=== PATIENT | female | born 1990 | race Hispanic/Latino ===

== ENCOUNTER 2025-02-13 18:23 | Emergency (ER) | payer SELFPAY ==
[~2025-02-13] VITALS: Ht 157.5 cm; Wt 77.1 kg
--- NOTE | 2025-02-13 18:41 | ERN ---
ED Note History of Present Illness Stated Complaint: HEADACHE Chief Complaint: Headache Time Seen by MD: 18:25 Time Seen by Midlevel: 18:25 Dictation: The patient is a 34-year-old female with a history of migraines, anxiety, hypertension not currently on any medications who presents to the emergency department with multiple complaints. Patient reports that this morning around 11:00 a.m. she started having some chest pressure that radiated to her left arm, nausea. Patient also reports that she has been having a migraine headache. Reports generalized headache. Denies any fevers, denies any vomiting, denies any upper respiratory symptoms denies any head trauma. Patient reports his pain is similar to her migraine headache. Allergies: Coded Allergies: No Known Allergies (Unverified Allergy, Unknown, 02/13/25) Past Medical History Past Medical History: Anxiety, Hypertension, Migraines Surgical History: Other LMP: Feb 04, 2025 RN Note Reviewed/Agreed w/PFSH: Yes Review of System Dictation Constitutional: Negative for fever,chills, and weight loss Eyes: Negative for injury, pain,redness, and discharge ENT: Negative for injury,pain or swelling Cardiovascular: Negative for palpitations, and edema positive for chest pain Respiratory: Negative for shortness of breath, cough, and wheezing, Abdomen/GI: Negative for abdominal pain, vomiting, diarrhea, and constipation positive for nausea Back: Negative for injury and pain : Negative for injury, bleeding and discharge MS/Extremity: Negative for injury and deformity Skin: Negative for rash, and discoloration Neuro: Negative for weakness, numbness, tingling, and seizure positive for headache Psych: Negative for suicide ideation, homicidal ideation, and hallucinations Initial Vital Sign VS Vital Signs Date Time Temp Pulse Resp B/P (MAP) Pulse Ox O2 Delivery O2 Flow Rate FiO2 02/13/25 18:24 97.5 87 20 118/87 100 Room Air 02/13/25 19:22 0 21 Physical Exam Dictation Vital Signs reviewed General Appearance: Alert, oriented x 3, no acute distress, well developed, nourished. Head and Face: non-traumatic. Eyes: PERRL, pink conjunctivas, eyelid no trauma, anterior chamber with arcus senilis. Ears: Pinnas intact and no signs of trauma or erythema ear canals clear and no discharge TM no erythema Nose: No discharge, no bleeding. Oropharynx: Mouth normal, tongue pink. pharynx clear,no erythema, tonsils no exudates, no abscesses noted, mucous membrane moist Neck: Supple, non-tender, no thyromegaly, no masses, no JVD, no bruits Breast:Deferred Chest:No tenderness, no crepitus, no paradoxical movement, no retractions Lungs:Clear, well-ventilated, symmetric, no rales, no wheezing, no rhonchi, no stridor, good breath sounds bilaterally Heart: Regular rate, regular rhythm, no murmur, no gallops Vascular: no peripheral edema, Abdomen: Soft, positive bowel sounds, nondistended, no guarding, nontender, no rebound, no masses no hepatomegaly, no splenomegaly, no Cutler's sign, no hernias. Rectal: Deferred Genital: Deferred Neurological: Normal speech, motor function intact, sensory function intact , upper extremities equal in strength, lower extremities equal in strength has been. Musculoskeletal: Neck nontender, full range of motion, back nontender, full range of motion, Extremities: nontender, full range of motion Skin: Color pink, dry, no turgor, no rash, no lacerations, no abrasions, no contusions. Lymphatic: Deferred Results (Laboratory/Radiology) Laboratory/Radiology Laboratory Tests Test 02/13/25 19:00 White Blood Count 7.5 K/uL (4.8-10.8) Red Blood Count 4.83 MIL/uL (4.00-5.50) Hemoglobin 14.5 g/dL (12.0-16.0) Hematocrit 43.1 % (36-48) Mean Corpuscular Volume 89.2 fL (79-99) Mean Corpuscular Hemoglobin 30.0 pg (27.0-33.0) Mean Corpuscular Hemoglobin Concent 33.6 g/dL (32.0-36.0) Red Cell Distribution Width 12.0 % (11.0-15.5) Platelet Count 336 K/uL (130-400) Mean Platelet Volume 8.6 fL (7.5-10.5) Immature Granulocyte % (Auto) 0.1 % (0-1) Neutrophils (%) (Auto) 71.1 % (40.0-77.0) Lymphocytes (%) (Auto) 22.6 % (21.0-51.0) Monocytes (%) (Auto) 4.4 % (3.0-13.0) Eosinophils (%) (Auto) 1.5 % (0.0-8.0) Basophils (%) (Auto) 0.3 % (0.0-5.0) Neutrophils # (Auto) 5.4 K/uL (1.8-7.7) Lymphocytes # (Auto) 1.7 K/uL (1.0-4.8) Monocytes # (Auto) 0.3 K/uL (0.1-1.0) Eosinophils # (Auto) 0.11 K/uL (0.00-0.70) Basophils # (Auto) 0.02 K/uL (0.00-0.20) Absolute Immature Granulocyte (auto 0.01 K/uL (0-1) Nucleated Red Blood Cells 0.0 % (0.0-0.19) Sodium Level 139 mmol/L (136-145) Potassium Level 3.6 mmol/L (3.5-5.1) Chloride Level 101 mmol/L (101-111) Carbon Dioxide Level 28 mmol/L (21-32) Blood Urea Nitrogen 8 mg/dL (7-18) Creatinine 0.6 mg/dL (0.5-1.0) Glomerular Filtration Rate Calc 121 mL/min (>90) Random Glucose 97 mg/dL (70-105) Total Calcium 8.7 mg/dL (8.5-10.1) Total Creatine Kinase 96 U/L (21-232) Troponin I High Sensitivity < 4 ng/L (4-50) L REASON: cp ORDERING PHYSICIAN: MANDY ACOSTA WEB DEVELOPMENT DIRECTOR PROCEDURE: CXR1VW - CHEST 1VW EXAM: CR Chest, 1 View. CLINICAL HISTORY: COMPARISON: None provided. FINDINGS: LUNGS: The lungs show no infiltrate or other acute finding. PLEURAL SPACES: No pleural effusion or pneumothorax. MEDIASTINUM: The cardiomediastinal silhouette is within normal limits. BONES: No aggressive appearing osseous lesion seen. IMPRESSION: No acute cardiopulmonary pathology is evident. /[place] Labs Reviewed?: Yes EKG: (+) rhythm (Sinus rhythm) EKG Comment: Date:02/13/2025 Time:184 Ventricular rate:76 OK interval:148 QRS duration:82 QT/QTc:377/424 EKG interpretation: Sinus rhythm Reviewed by ED Attending no STEMI ED Course ED Course Orders Procedure Category Date Status Time Cbc With Differential LAB 02/13/25 Complete 18:33 Chest 1vw RAD 02/13/25 Resulted 18:33 12 Lead Ekg Tracing- EKG 02/13/25 Logged Technical 18:33 0.9%Nacl 1000ml (Ns PHA 02/13/25 In Process 1000ml) 19:00 Acetaminophen 500mg PHA 02/13/25 In Process Tab (Tylenol 500mg T 19:00 Creatine Kinase, Total LAB 02/13/25 Complete 18:33 Troponin I High LAB 02/13/25 Complete Sensitivity 18:33 Urinalysis Profile LAB 02/13/25 Logged 18:33 Basic Metabolic Panel LAB 02/13/25 Complete 18:33 ,Urine Test LAB 02/13/25 Logged 18:33 Metoclopramide 10 PHA 02/13/25 In Process Mg/2 Ml Vial (Reglan 1 19:00 Diphenhydramine Hcl PHA 02/13/25 In Process (Benadryl Inj) 19:00 Current Medications Medications (Trade) Dose Ordered Sig/Vandana Route PRN Reason Start Time Stop Time Status Last Admin Dose Admin Acetaminophen (TYLenol 500MG TAB) 1,000 mg ONCE PO 02/13/25 19:00 02/13/25 23:00 02/13/25 19:07 Diphenhydramine HCl (BENAdryl INJ) 25 mg ONCE IV 02/13/25 19:00 02/13/25 23:00 02/13/25 19:06 Metoclopramide HCl (regLAN 10MG IV) 10 mg ONCE IVP 02/13/25 19:00 02/13/25 23:00 02/13/25 19:04 Sodium Chloride 1,000 ml @ 0 mls/hr ONCE IV 02/13/25 19:00 02/14/25 18:59 02/13/25 19:04 Vital Signs Date Time Temp Pulse Resp B/P (MAP) Pulse Ox O2 Delivery O2 Flow Rate FiO2 02/13/25 19:22 98.1 82 16 120/84 100 Room Air* 0 21 02/13/25 18:24 97.5 87 20 118/87 100 Room Air HEART Score Response (Comments) Value History: Low suspicion (0) 0 EKG: Normal 0 Age: < 45yrs (0) 0 Risk Factors: No known risk factors (0) 0 Initial Troponin: Normal limit (0) 0 Total 0 Medical Decision Making MDM The patient is a 34-year-old female with a history of migraines, anxiety, hypertension not currently on any medications who presents to the emergency department with multiple complaints. Patient reports that this morning around 11:00 a.m. she started having some chest pressure that radiated to her left arm, nausea. Patient also reports that she has been having a migraine headache. Reports generalized headache. Denies any fevers, denies any vomiting, denies any upper respiratory symptoms denies any head trauma. Patient reports his pain is similar to her migraine headache. CBC showed no leukocytosis, no anemia, chemistry showed no electrolyte imbalance, normal renal function, negative troponin, chest x-ray showed no acute pathology. On physical exam patient continues neurologically intact, stable vital signs. Low heart risk. Labs and imaging discussed with the patient who agrees she feels better. Patient at this time does not want to wait for the urinalysis and states she needs to go because she needs to take care for grandpa. Patient agree to discharge. Instructed follow up with PCP. Differential diagnosis: Migraine headache, ACS, costochondritis, anxiety, electrolyte imbalance Need for hospitalization: Patient does not meet criteria for hospitalization. There are no social concerns with this patient. DX & DISP Disposition: Discharge Departure Impression: Primary Impression: Migraine headache Additional Impression: Chest wall pain Condition: Stable Additional Instructions: Your labs were unremarkable. Please follow up with your primary doctor in 1-2 days. If anything worsens please return to ER. FOLLOW-UP WITH PRIMARY CARE PROVIDER IN 1 TO 2 DAYS. TAKE MEDICATIONS DIRECTED HERE IN THE EMERGENCY ROOM. OKAY TO CONTINUE HOME MEDICATIONS UNLESS OTHERWISE DISCUSSED DURING YOUR VISIT IN THE EMERGENCY ROOM TODAY. RETURN TO YOUR NEAREST EMERGENCY ROOM IF SYMPTOMS WORSEN OR IF THERE IS NO IMPROVEMENT. CALL 911 IF YOU NEED IMMEDIATE ASSISTANCE. TAKE TYLENOL [id number] NEEDED AND IF NO CONTRAINDICATIONS ARE PRESENT. INCREASE ORAL HYDRATION. A WOUND CULTURE OR URINE CULTURE WAS ORDERED HERE IN THE EMERGENCY ROOM DEPARTMENT PLEASE FOLLOW-UP WITH PRIMARY CARE PROVIDER AND ADVISE THEM TO GET REPEAT PORTS FROM OUR FACILITY. IF YOU HAD ANY SIRIA WRAP/SPLINTS THAT WERE APPLIED HERE, PLEASE DO NOT REMOVE THEM UNTIL YOU SEE YOUR PRIMARY CARE OR SPECIALTY. Referrals: SELF,REFERRAL (PCP) Time of Disposition: 20:29 I have reviewed the case, and I agree with, Diagnosis and Plan MANDY ACOSTA Feb 13, 2025 18:41
--- NOTE | 2025-02-13 18:57 | HMCIMG ---
EXAM: CR Chest, 1 View. CLINICAL HISTORY: cp COMPARISON: None provided. FINDINGS: LUNGS: The lungs show no infiltrate or other acute finding. PLEURAL SPACES: No pleural effusion or pneumothorax. MEDIASTINUM: The cardiomediastinal silhouette is within normal limits. BONES: No aggressive appearing osseous lesion seen. IMPRESSION: No acute cardiopulmonary pathology is evident. /[place]
[2025-02-13] MEDS: 0.9%NACL 1000ML 1,000 ML IV SCH (19:04)
[2025-02-13 19:13] LABS: IMMATURE GRANULOCYTE ABSOLUTE 0.01 K/uL (0-1); NUCLEATED RED BLOOD CELLS 0.0 % (0.0-0.19); PLATELET COUNT (AUTO) 336 K/uL (130-400); RED BLOOD CELL COUNT(AUTO) 4.83 MIL/uL (4.00-5.50); RED CELL DISTRIBUTION WIDTH 12.0 % (11.0-15.5); WHITE BLOOD COUNT (AUTO) 7.5 K/uL (4.8-10.8)
[2025-02-13 19:22] LABS: CREATININE 0.6 mg/dL (0.5-1.0); GLOMERULAR FILTR. RATE CALC 121.0 mL/min (>90); GLUCOSE,RANDOM 97.0 mg/dL (70-105); SODIUM SERUM 139.0 mmol/L (136-145); UREA NITROGEN, BLOOD 8.0 mg/dL (7-18)
[2025-02-13 19:29] LABS: CREATINE KINASE, TOTAL 96.0 U/L (21-232)
[2025-02-13 20:35] LABS: APPEARANCE,URINE CLEAR (CLEAR); GLUCOSE, URINE (UA) NEGATIVE (NEGATIVE); LEUKOCYTE ESTERASE ,URINE NEGATIVE Leu/uL (NEGATIVE); NITRATE,URINE NEGATIVE (NEGATIVE); OCCULT BLOOD,URINE NEGATIVE (NEGATIVE)
[2025-02-13 20:36] VITALS: BP 120/76; PULSE 74; RESP 16; TEMP 98.1; O2SAT 100
[2025-02-13 20:36] LABS: ADD UA MICROSCOPIC YES
[2025-02-13 20:38] LABS: HCG,QUALITATIVE URINE NEGATIVE (NEGATIVE)
[2025-02-13 20:40] LABS: SQUAMOUS EPITHELIAL CELL,UR RARE /HPF (0-2)
--- NOTE | 2025-02-14 06:50 | EKG ---
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
== END 2025-02-13 20:40 | disposition home or self-care (01) ==
LOC: EDH 18:23
DX: R07.89 Other chest pain (principal); G43.909 Migraine, unspecified, not intractable, without status migrainosus; I10 Essential (primary) hypertension
CPT/HCPCS: 99285; 96374; 71045; 96375; 82550; 84484; 80048; 85025; 81001; 81025; 36415; 93005; J1200; J7030; J2765